=== PATIENT | male | born 1970 | race Caucasian/White ===

== ENCOUNTER → 2018-07-22 | Outpatient (CLI) | payer BC ==
[2018-07-22 11:09] LABS: Basophils % (A) 0 %; Eosinophils % (A) 1 %; HCT 43.6 % (39.0-53.0); HGB 13.5 gm/dL (13.0-17.5); Lymphocytes # (A) 1.4 k/uL (1.0-4.8); Lymphocytes % (A) 24 %; MCH 28.6 pg (25.0-35.0); MCV 92.2 fL (80.0-100.0); Mean Platelet Volume 6.7; Monocytes # (A) 0.3 k/uL (0-1.0); Monocytes % (A) 5 %; Neutrophils # (A) 3.9 k/uL (1.3-7.7); Neutrophils % (A) 69 %; Platelet Count 275 k/uL (150-450); RBC 4.73 m/uL (4.30-5.90); WBC 5.8 k/uL (3.8-10.6)
[2018-07-22 11:25] LABS: Anion Gap 7 mmol/L; Blood Urea Nitrogen 17 mg/dL (9-20); Carbon Dioxide 28 mmol/L (22-30); Chloride 104 mmol/L (98-107); Glucose 100 mg/dL (74-99); Potassium 4.6 mmol/L (3.5-5.1); Sodium 139 mmol/L (137-145)
== END ==
LOC: LABPAT 09:50
PROVIDERS: ATTEND Urology
DX: Z01.818 Encounter for other preprocedural examination (principal); Z01.812 Encounter for preprocedural laboratory examination; I10 Essential (primary) hypertension; C61 Malignant neoplasm of prostate; Z79.899 Other long term (current) drug therapy
CPT/HCPCS: 80048; 85025; 86850; 86900; 86901; 93005

== ENCOUNTER 2018-07-29 05:46 | Inpatient (IN) | payer BC ==
[2018-07-26 13:40] VITALS: BMI 21.7
--- NOTE | 2018-07-28 06:08 | P.GSHP ---
History of Present Illness H&P Date: 07/24/18 Chief Complaint: Prostate cancer The patient is a 47-year-old white male evaluated for an elevated PSA level of 5.95, up from 3.44 in June 2016. He has a grandfather with prostate cancer. PHYLLIS revealed the prostate to be anodular. He underwent a prostate ultrasound, revealing a prostate volume of 26 mL with no echogenic abnormalities. However, biopsies of the left lateral base, left base, and left lateral mid showed [place] 7 adenocarcinoma. The right-sided biopsies were negative. The Prolaris score was low (2.4). He reports mild voiding symptoms and denies erectile dysfunction. Alternative treatment options have been reviewed in detail with the patient and his . He has elected to undergo a right nerve sparing robotic-assisted laparoscopic prostatectomy with bilateral pelvic lymphadenectomy. - Constitutional Constitutional: Denies chills, Denies fever - Gastrointestinal Gastrointestinal: Denies nausea, Denies vomiting - Genitourinary (Female) Genitourinary: Reports nocturia Past Medical History - Past Family History Mother Family Medical History: No Reported History Medications and Allergies Home Medications Medication Instructions Recorded Confirmed Type LORazepam [Ativan] 1 mg PO QAM 07/26/18 07/26/18 History Lisinopril 1 tab PO QAM 07/26/18 History Allergies Allergy/AdvReac Type Severity Reaction Status Date / Time No Known Allergies Allergy Verified 07/26/18 13:34 Surgical - Exam - General well developed, well nourished, no distress - Neck no masses, trachea midline - Respiratory normal respiratory effort, clear to auscultation - Cardiovascular Rhythm: regular Abnormal Heart Sounds: no systolic murmur, no diastolic murmur, no rub, no S3 Gallop, no S4 Gallop, no click, no other - Abdomen Abdomen: soft, non tender, no guarding, no rigid, no rebound - Genitourinary normal penis with no external lesions, testicles non-tender - Rectum Rectum: normal sphincter tone, no masses, other (Prostate mildly enlarged and smooth) - Psychiatric oriented to time, oriented to person, oriented to place, speech is normal, memory intact Assessment and Plan (1) Adenocarcinoma of prostate Status: Acute Code(s): C61 - MALIGNANT NEOPLASM OF PROSTATE SNOMED Code(s): 973079612 Plan: The patient has elected to undergo a right nerve sparing robotic-assisted laparoscopic prostatectomy (RALP) with bilateral pelvic lymphadenectomy. The procedure has been reviewed in detail with the patient. The anticipated perioperative course was discussed. Potential risks were reviewed, which include anesthesia, bleeding, infection, neurovascular injury, bowel injury, lymphocele, urinary leak, and vesical neck contracture. He understands the possibility that the procedure will need to be converted to an open procedure. The possible need for adjuvant therapy has been discussed. The possibility of post-prostatectomy urinary incontinence is well understood by the patient, and he is also aware of the possibility of erectile dysfunction despite preservation of the right neurovascular bundle.
[~2018-07-29 05:46] MED LIST: ceFAZolin IN SWFI 2 GM/20 ML SYRINGE IVP ONE
[2018-07-29] MEDS ORDERED: fentaNYL (PF) 50 MCG/ML 2 ML AMP IV PRN (06:20)
[2018-07-29] MEDS ORDERED: ONDANSETRON 4 MG/2 ML VIAL IVP ONE (06:20)
[2018-07-29] MEDS ORDERED: DEXAMETHASONE SOD PHOSPHATE 10 MG/ML 1 ML VIAL IV ONE (06:20)
[2018-07-29] MEDS ORDERED: LIDOCAINE 1% 20 ML VIAL (10MG/ML) FOR IV START INTRADERMA PRN (06:20)
[2018-07-29] MEDS ORDERED: MIDAZOLAM 2 MG/2 ML VIAL IV PRN (06:20)
[2018-07-29] MEDS: LACTATED RINGERS 1,000 ML IV SCH (06:42)
[2018-07-29] MEDS ORDERED: MIDAZOLAM 2 MG/2 ML VIAL ONE (07:25)
[2018-07-29] MEDS ORDERED: ROCURONIUM BROMIDE 10 MG/ML 10 ML VIAL IV ONE (07:25)
[2018-07-29] MEDS ORDERED: fentaNYL (PF) 50 MCG/ML 2 ML AMP ONE (07:25)
[2018-07-29] MEDS ORDERED: SUCCINYLCHOLINE CHLORIDE 100 MG/5 ML SYR IV ONE (07:25)
[2018-07-29] MEDS ORDERED: HYDROmorphone (PF) 1 MG/ML ONE (07:25)
[2018-07-29] MEDS ORDERED: NEOSTIGMINE 1 MG/ML 10 ML VIAL ONE (07:25)
[2018-07-29] MEDS ORDERED: LIDOCAINE 1% INJ 10MG/ML (20 ML MDV) ONE (07:25)
[2018-07-29] MEDS ORDERED: KETAMINE 10 MG/ML 20 ML VIAL ONE (07:25)
[2018-07-29] MEDS ORDERED: GLYCOPYRROLATE 0.2 MG/ML 2 ML VIAL ONE (07:25)
[2018-07-29] MEDS ORDERED: PROPOFOL 10 MG/ML 20 ML VIAL IV ONE (07:25)
[2018-07-29] MEDS ORDERED: BUPIVACAINE (PF) 0.25% 30 ML VIAL SQ ONE ×4 (08:21)
[2018-07-29] MEDS: HYDROmorphone 1 MG/ML 1 ML SYRINGE IVP PRN ×2 (12:16→12:23)
--- NOTE | 2018-07-29 12:56 | P.OP ---
Date of Procedure: 07/29/18 Preoperative Diagnosis: Adenocarcinoma of the Prostate, Clinical Stage [id number] Postoperative Diagnosis: Same Procedure(s) Performed: Right nerve sparing robotic-assisted laparoscopic prostatectomy (RALP) with bilateral pelvic lymphadenectomy Anesthesia: EDVIN Surgeon: Arun Calderon Yarn Twister #1: Bahman Jaimes Estimated Blood Loss (ml): 100 IV fluids (ml): 1,500 Pathology: other (Prostate, seminal vesicles, bilateral pelvic lymph nodes) Condition: stable Disposition: PACU Indications for Procedure: The patient is a 47-year-old white male evaluated for an elevated PSA level of 5.95, up from 3.44 in June 2016. He has a grandfather with prostate cancer. PHYLLIS revealed the prostate to be anodular. He underwent a prostate ultrasound, revealing a prostate volume of 26 mL with no echogenic abnormalities. However, biopsies of the left lateral base, left base, and left lateral mid showed [place] 7 adenocarcinoma. The right-sided biopsies were negative. The Prolaris score was low (2.4). He reports mild voiding symptoms and denies erectile dysfunction. Alternative treatment options have been reviewed in detail with the patient and his . He has elected to undergo a right nerve sparing robotic-assisted laparoscopic prostatectomy with bilateral pelvic lymphadenectomy. Operative Findings: No evidence of extraprostatic disease. Description of Procedure: The patient was taken in the operating room and placed in the dorsal lithotomy position, with his legs supported in Denilson stirrups. He was carefully positioned on a beanbag for stability. The abdomen and external genitalia were prepped and draped sterilely. A Coley catheter was inserted. The Veress needle was passed through the anterior abdominal wall immediately cephalad to the umbilicus, and insufflation was performed to a pressure of 20 mm Hg. Once insufflation was performed, the Veress needle was removed and a supraumbilical incision was made, through which a 12 mm camera port was placed. Under camera guidance, 3 8 mm robotic ports were placed, 2 on the left and one on the right. An additional 12 mm port was placed on the right lateral side for use as an printing assistant port. A 5 mm port was placed to the right of the camera port for suction. The patient was placed in Trendelenburg position, and docking was then performed to the [employer] Sara system utilizing a 4-arm approach. The abdomen was examined. The sigmoid colon was mobilized out of the pelvis. The peritoneum was incised lateral to the medial umbilical ligaments bilaterally , exposing the pubis. The peritoneum was then incised across the midline, allowing the bladder flap to be taken down. The endopelvic fascia was opened bilaterally, and muscular attachments from the urogenital diaphragm were swept away from the prostate. Bilateral pelvic lymphadenectomies were performed in the standard fashion. The peritoneal incisions were extended in a cephalad direction, and the vas deferens were divided bilaterally. Margins of dissection were the bifurcation of the iliac vessels proximally, the circumflex iliac vein distally, the external iliac artery laterally, and the obturator nerve medially. A combination of sharp and blunt dissection was used. Care was taken to avoid any neurovascular injury, and the use of monopolar electrocautery was avoided immediately adjacent to neurovascular structures. The lymphatic package was clipped distally. No enlarged lymph nodes were encountered. There were no complications. The vesical neck was incised transversely, down to the lumen. The Coley catheter was brought out through the anterior vesical neck incision and was used for traction. The posterior aspect of the vesical neck was incised, such that the full-thickness of the vesical neck was divided. The anterior layer of the Denonvilliers fascia was incised, exposing the vas deferens. Each were isolated and divided. Next, each of the seminal vesicles were dissected away from adjacent tissues, and vascular attachments were cauterized and divided. The posterior leaf of Denonvilliers fascia was incised transversely, allowing entry into the plane between the prostate and rectum. With lateral spreading, this plane was developed down to the apex. This exposed the lateral vascular pedicles bilaterally. These were clipped and divided in an antegrade fashion, down to the apex. The use of electrocautery was avoided to prevent thermal damage to the nerves. On the right side, the plane of dissection was immediately adjacent to the prostate to preserve the neurovascular bundle. Later in the procedure, a small amount of oozing was noted from the bundle, which was controlled using a V lock suture in a [id number] fashion. The remaining apical attachments were swept away from the prostate. The dorsal venous complex was incised, as well as periurethral tissue. At this point, only the urethra remained intact. This was transected immediately distal to the prostatic apex using cold scissors. The specimen was placed within a specimen bag. The dorsal venous complex was sutured using a V-Loc suture in a running fashion. The suture was passed through the periosteum of the pubis periurethral support. A second V-Loc suture was then used to place the Richard stitch, incorporating the rhabdosphincter and the edge of Denonvilliers fascia. This allowed the bladder to be taken down to the urethra, leaving the vesical neck immediately adjacent to the urethra. The vesicourethral anastomosis was then performed using a V-Loc suture in a running fashion. After completing the anastomosis, an 18-[place] Coley catheter was placed and approximately 150 mL of 0.9 normal saline were instilled into the bladder. A small amount of extravasation was noted anteriorly to the right of the midline, and an interrupted suture was placed here which eliminated the extravasation. A small amount of oozing was noted from the right lateral vascular pedicle, so Surgicel was placed over this. Tisseel was sprayed into the pelvis. The patient was returned to the supine position. Undocking was performed, and the specimen bag sutures were passed through the camera port. After removing all the ports and allowing all of the CO2 to be released from the peritoneal cavity, the camera port incision was enlarged to allow removal of the surgical specimen. The fascia of this incision was then closed using 0 Vicryl suture in an interrupted [id number] fashion. Each of the skin incisions were then closed using 4-0 Monocryl suture in a subcuticular fashion. Marcaine was injected at each of the incision sites. Dermabond was applied to each incision. The Coley catheter was connected to gravity drainage. All sponge and needle counts were correct. The patient tolerated the procedure well was taken to the recovery room in stable condition.
[2018-07-29] MEDS ORDERED: HYDROmorphone 1 MG/ML 1 ML SYRINGE IVP PRN (14:53)
[2018-07-29] MEDS ORDERED: ONDANSETRON 4 MG/2 ML VIAL IVP PRN (14:53)
[2018-07-29] MEDS: KETOROLAC 30 MG/ML 1 ML VIAL IVP PRN ×2 (15:16→21:47)
[2018-07-29] MEDS: DEXTROSE 5%-0.45% NACL 1,000 ML IV SCH ×2 (15:18→21:55)
[2018-07-29] MEDS: OXYBUTYNIN 15 MG TAB.ER.24 PO SCH (16:36)
[2018-07-29] MEDS: HEPARIN SODIUM,PORCINE 5,000 UNIT/ML 1 ML VIAL SQ SCH (21:44)
[2018-07-30] MEDS: LACTATED RINGERS 1,000 ML IV SCH (06:16)
[2018-07-30 08:09] LABS: Basophils % (A) 0 %; Eosinophils # (A) 0.1 k/uL (0-0.7); Eosinophils % (A) 1 %; HGB 11.8 gm/dL (13.0-17.5); Lymphocytes # (A) 1.5 k/uL (1.0-4.8); Lymphocytes % (A) 20 %; MCH 29.3 pg (25.0-35.0); MCHC 32.7 g/dL (31.0-37.0); MCV 89.6 fL (80.0-100.0); Mean Platelet Volume 6.7; Monocytes # (A) 0.4 k/uL (0-1.0); Monocytes % (A) 5 %; Neutrophils # (A) 5.5 k/uL (1.3-7.7); Neutrophils % (A) 73 %; Platelet Count 213 k/uL (150-450); RBC 4.02 m/uL (4.30-5.90); RDW 12.9 % (11.5-15.5); WBC 7.5 k/uL (3.8-10.6)
[2018-07-30 08:16] LABS: Potassium 4.3 mmol/L (3.5-5.1)
[2018-07-30 08:17] LABS: Anion Gap 6 mmol/L; Blood Urea Nitrogen 12 mg/dL (9-20); Carbon Dioxide 27 mmol/L (22-30); Chloride 105 mmol/L (98-107); Glucose 108 mg/dL (74-99); Sodium 138 mmol/L (137-145)
[2018-07-30] MEDS ORDERED: LOSARTAN 50 MG TAB PO SCH (09:00)
[2018-07-30 09:16] VITALS: BP 106/60; PULSE 76; RESP 16; TEMP 97.7
[2018-07-30] MEDS: OXYBUTYNIN 15 MG TAB.ER.24 PO SCH (09:25)
[2018-07-30] MEDS: HEPARIN SODIUM,PORCINE 5,000 UNIT/ML 1 ML VIAL SQ SCH ×2 (09:26→09:33)
[2018-07-30] MEDS: KETOROLAC 30 MG/ML 1 ML VIAL IVP PRN (09:26)
[2018-07-30] MEDS: DEXTROSE 5%-0.45% NACL 1,000 ML IV SCH ×2 (13:37→15:35)
--- NOTE | 2018-07-30 13:50 | P.DS ---
Providers Date of admission: 07/29/18 05:46 Expected date of discharge: 07/30/18 Attending physician: Arun Calderon Primary care physician: Russell Roblero - Discharge Diagnosis(es) (1) Adenocarcinoma of prostate Current Visit: Yes Status: Acute Hospital Course: On the day of admission, the patient underwent an uncomplicated right nerve sparing RALP. The perioperative course was unremarkable. He remained afebrile with stable vital signs. He was tolerating diet and ambulating well. He reported only mild discomfort, for which Toradol was effective. When examined prior to discharge, the abdomen was soft and non-distended. The incisions were clean and dry. The Coley catheter was draining clear yellow urine. Procedures: Robotic-assisted laparoscopic prostatectomy (RALP) with bilateral pelvic lymphadenectomy on 07/29/2018 Patient Condition at Discharge: Good Plan - Discharge Summary Discharge Rx Participant: Yes New Discharge Prescriptions: New Ciprofloxacin HCl [Cipro] 250 mg PO Q12HR #6 tablet Ketorolac [Toradol] 10 mg PO Q6HR #12 tab No Action LORazepam [Ativan] 1 mg PO QAM Losartan Potassium 1 tab PO DAILY Discharge Medication List LORazepam [Ativan] 1 mg PO QAM 07/26/18 [History] Losartan Potassium 1 tab PO DAILY 07/29/18 [History] Ciprofloxacin HCl [Cipro] 250 mg PO Q12HR #6 tablet 07/30/18 [Rx] Ketorolac [Toradol] 10 mg PO Q6HR #12 tab 07/30/18 [Rx] Follow up Appointment(s)/Referral(s): Eduard Gamble MD [STAFF PHYSICIAN] - 08/10/18 Activity/Diet/Wound Care/Special Instructions: Discharge home with Coley catheter. Instruct patient to use overnight drainage bag as well as urinary leg bag. Okay to shower. Diet as tolerated. No lifting , driving, or strenuous activity. Reassure patient that abdominal wall ecchymosis and penoscrotal swelling are normal. Instruct patient to begin taking antibiotics one day prior to Coley catheter removal. Patient should call our office to schedule a follow-up appointment with Dr. Gamble on 2017. Discharge Disposition: HOME SELF-CARE
== END 2018-07-30 15:40 | disposition home or self-care (01) | DRG 708 ==
LOC: 2ORMAIN 05:46 → 4SSUR 13:28
PROVIDERS: ADMIT Urology; ATTEND Urology
PROC: 0VT04ZZ Resection of Prostate, Percutaneous Endoscopic Approach (ICD-10-PCS; 2018-07-29)
PROC: 0VT34ZZ Resection of Bilateral Seminal Vesicles, Percutaneous Endoscopic Approach (ICD-10-PCS; 2018-07-29)
PROC: 8E0W4CZ Robotic Assisted Procedure of Trunk Region, Percutaneous Endoscopic Approach (ICD-10-PCS; 2018-07-29)
PROC: 07TC4ZZ Resection of Pelvis Lymphatic, Percutaneous Endoscopic Approach (ICD-10-PCS; principal; 2018-07-29 07:30)
DX: C61 Malignant neoplasm of prostate (principal); Z79.899 Other long term (current) drug therapy; Z80.42 Family history of malignant neoplasm of prostate
CPT/HCPCS: 80048; 85025; 86850; 86900; 86901; 88309

== ENCOUNTER → 2018-09-06 | Outpatient (CLI) | payer BC | END | disposition home or self-care (01) | LOC: LABWHC1 11:41 | PROVIDERS: ATTEND Urology | DX: C61 Malignant neoplasm of prostate (principal) | CPT/HCPCS: 36415; 84153 ==

== ENCOUNTER → 2018-12-14 | Outpatient (CLI) | payer BC | END | disposition home or self-care (01) | LOC: LABWHC1 09:29 | PROVIDERS: ATTEND Urology | DX: C61 Malignant neoplasm of prostate (principal) | CPT/HCPCS: 36415; 84153 ==

== ENCOUNTER → 2019-03-22 | Outpatient (CLI) | payer BC | END | disposition home or self-care (01) | LOC: LABWHC1 09:09 | PROVIDERS: ATTEND Urology | DX: C61 Malignant neoplasm of prostate (principal) | CPT/HCPCS: 36415; 84153 ==

== ENCOUNTER → 2019-07-17 | Outpatient (CLI) | payer BC | END | disposition home or self-care (01) | LOC: LABWHC1 08:45 | PROVIDERS: ATTEND Urology | DX: C61 Malignant neoplasm of prostate (principal) | CPT/HCPCS: 36415; 84153 ==

== ENCOUNTER → 2019-07-17 | Outpatient (CLI) | payer BC ==
--- NOTE | 2019-07-17 10:24 | XR ---
EXAMINATION TYPE: XR chest 2V DATE OF EXAM: 07/17/2019 COMPARISON: 06/07/2015 TECHNIQUE: PA and lateral views submitted. HISTORY: Annual physical exam FINDINGS: The lungs are clear and there is no pneumothorax, pleural effusion, or focal pneumonia. Hyperinflat ion the lungs. Hypertrophic change of the spine. No overt failure. Apical pleural thickening. IMPRESSION: 1. No acute process. Mild hyperinflation correlate for mild COPD.
== END | disposition home or self-care (01) ==
LOC: RADXRMAIN 09:02
PROVIDERS: ATTEND Family Medicine
DX: Z00.00 Encounter for general adult medical examination without abnormal findings (principal); Z87.891 Personal history of nicotine dependence
CPT/HCPCS: 71046

== ENCOUNTER 2024-08-07 11:37 | Day surgery (SDC) | payer BC ==
[2024-08-04 08:36] VITALS: BMI 22.1
[~2024-08-07 11:37] MED LIST changes: +LIDOCAINE 1% (10MG/ML) FOR IV START INTRADERMA PRN; -ceFAZolin IN SWFI 2 GM/20 ML SYRINGE IVP ONE; +droPERidol 5 MG/2 ML VIAL IVP ONE
[2024-08-07] MEDS: ONDANSETRON 4 MG/2 ML VIAL IVP ONE (13:01)
[2024-08-07] MEDS: LACTATED RINGERS 1,000 ML IV SCH (13:01)
[2024-08-07] MEDS: IV FLUID CONTINUATION 1,000 ML IV ONE (13:02)
[2024-08-07] MEDS: DEXAMETHASONE SOD PHOSPHATE 4 MG/ML 1 ML VIAL IV ONE (13:02)
[2024-08-07 13:11] LABS: Basophils % (A) 0 %; Eosinophils # (A) 0.1 k/uL (0-0.7); Eosinophils % (A) 2 %; HCT 43.6 % (39.0-53.0); HGB 14.3 gm/dL (13.0-17.5); Lymphocytes # (A) 1.9 k/uL (1.0-4.8); Lymphocytes % (A) 30 %; MCHC 32.9 g/dL (31.0-37.0); MCV 91.2 fL (80.0-100.0); Mean Platelet Volume 6.8; Monocytes # (A) 0.3 k/uL (0-1.0); Monocytes % (A) 5 %; Neutrophils # (A) 3.9 k/uL (1.3-7.7); Neutrophils % (A) 61 %; Platelet Count 285 k/uL (150-450); RBC 4.77 m/uL (4.30-5.90); RDW 12.3 % (11.5-15.5); WBC 6.4 k/uL (3.8-10.6)
[2024-08-07 13:21] LABS: ALT 18 U/L (4-49); AST 23 U/L (17-59); African American GFR (CKD) >90 (>60 ml/min/1.73 sqM); Albumin 4.4 g/dL (3.5-5.0); Alkaline Phosphatase 72 U/L (38-126); Anion Gap 7 mmol/L; Blood Urea Nitrogen 15 mg/dL (9-20); Calcium 9.6 mg/dL (8.4-10.2); Carbon Dioxide 27 mmol/L (22-30); Chloride 104 mmol/L (98-107); Glucose 93 mg/dL (74-99); Non-African American GFR(CKD) >90 (>60 ml/min/1.73 sqM); Potassium 4.3 mmol/L (3.5-5.1); Sodium 138 mmol/L (137-145); Total Bilirubin 0.6 mg/dL (0.2-1.3); Total Protein 6.8 g/dL (6.3-8.2)
[2024-08-07] MEDS: HEPARIN SODIUM,PORCINE 5,000 UNIT/ML 1 ML VIAL SQ STA (13:34)
[2024-08-07] MEDS ORDERED: KETOROLAC 15 MG/ML 1 ML VIAL ONE (14:00)
[2024-08-07] MEDS ORDERED: SUCCINYLCHOLINE CHLORIDE 200 MG/10 ML VIAL IV ONE (14:00)
[2024-08-07] MEDS ORDERED: ROCURONIUM 10 MG/ML (5 ML VIAL) IV ONE (14:00)
[2024-08-07] MEDS ORDERED: GLYCOPYRROLATE 0.2 MG/ML 2 ML VIAL ONE (14:00)
[2024-08-07] MEDS ORDERED: HYDROmorphone (PF) 1 MG/ML ONE (14:00)
[2024-08-07] MEDS ORDERED: PROPOFOL 10 MG/ML 20 ML VIAL IV ONE (14:00)
[2024-08-07] MEDS ORDERED: LIDOCAINE 1% INJ 10MG/ML (20 ML MDV) ONE (14:00)
[2024-08-07] MEDS ORDERED: LIDOCAINE 4% LTA KIT (4 ML) TOPICAL ONE (14:00)
[2024-08-07] MEDS ORDERED: PHENYLEPHRINE-0.9% NACL SYG 1,000 MCG/10 ML SYRINGE ONE (14:00)
[2024-08-07] MEDS ORDERED: NEOSTIGMINE 1 MG/ML 10 ML VIAL ONE (14:00)
[2024-08-07] MEDS ORDERED: fentaNYL (PF) 50 MCG/ML 2 ML AMP ONE (14:00)
[2024-08-07] MEDS: LIDOCAINE 1%-EPI 1:100,000 20 ML VIAL SQ ONE (14:25)
--- NOTE | 2024-08-07 15:30 | P.OP ---
Date of Procedure: 08/07/24 Preoperative Diagnosis: Left inguinal hernia Postoperative Diagnosis: Left inguinal indirect hernia Procedure(s) Performed: Robotic left inguinal hernia repair with mesh Anesthesia: EDVIN Surgeon: Lou Grande Pathology: none sent Condition: stable Disposition: same day Indications for Procedure: 53-year-old male presented to the surgery clinic with complaint of left groin pain. He is found to have a left inguinal hernia on exam. He does have a previous history of robotic prostatectomy. Plan is for robotic left inguinal hernia repair with mesh placement. Risks, benefits and alternatives were provided to the patient. All questions were answered. Operative Findings: Left inguinal indirect hernia Description of Procedure: Patient was brought to the operating suite and placed in supine position on the operating table. Sedation was provided by anesthesia and the patient underwent endotracheal intubation. He was then prepped and draped in regular sterile fashion. A supraumbilical incision was made approximately 20 cm superior to the pubic symphysis. Dissection was carried to the fascia. The fascia was incised and an 8 mm trocar was placed. Pneumoperitoneum was achieved. 2 additional incisions were made approximately 11 cm lateral to the supraumbilical incision and 8 mm trocars were placed. The patient was then placed in Trendelenburg position and the hernia site was clearly visualized on the left side. This was noted as an indirect inguinal hernia. Scarring was noted at the site of the previous prostatectomy. The robot was then docked appropriately. Incision was made just lateral to the medial umbilical ligament on the left side with the monopolar scissors and the peritoneal flap was created and was taken down towards Calin's ligament. Scarring was noted towards Calin's ligament and blunt and sharp dissection was used to create a landing plane. The flap was then extended laterally. Attention was then turned to the indirect inguinal hernia. The sac was freed from the cord all while preserving the cord structures. At this point the indirect hernia was reduced. Once the entire space was appropriately dissected out, we brought the anatomic ProGrip mesh and unrolled it over the hernia site. Once the appropriately in place, the peritoneal flap was closed using a running 2 OV lock suture. Once this was completed we removed all robotic instruments and undocked the robot. The supraumbilical fascia incision was closed with an 0 Vicryl suture using a Javan-Eliza device. This was done using laparoscopic guidance. All skin incisions were then closed with 4-0 Vicryl subcuticular suture. Sterile dressing was applied. The patient was awakened in the operating suite and taken to postanesthesia care unit in stable condition.
[2024-08-07 15:31] VITALS: TEMP 97.5
[2024-08-07 15:54] VITALS: RESP 16
[2024-08-07 17:14] VITALS: BP 129/64; PULSE 75
== END 2024-08-07 17:29 | disposition home or self-care (01) ==
LOC: OR 11:37
PROVIDERS: ATTEND Surgery
DX: K40.90 Unilateral inguinal hernia, without obstruction or gangrene, not specified as recurrent (principal); I10 Essential (primary) hypertension; Z79.899 Other long term (current) drug therapy
CPT/HCPCS: 49650; S2900; 80053; 85025